=== PATIENT | female | born 1960 | race Caucasian/White ===

== ENCOUNTER 2017-09-16 08:46 | Emergency (ER) | payer OTHER ==
[2017-09-16 09:59] VITALS: BP 117/71; PULSE 74; TEMP 97.9; BMI 19.8
--- NOTE | 2017-09-16 10:11 | PDOC ---
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 Pt sent from employee health to ER for evaluation. Pt has no fever no body aches no abd pain no headche. non smoker no medical history. Past History - Past Medical History Allergies/Adverse Reactions: Allergies Allergy/AdvReac Type Severity Reaction Status Date / Time No Known Allergies Allergy Verified 09/16/17 09:54 Home Medications: Ambulatory Orders NK [No Known Home Medication] 06/10/17 Cardiac Disorders: Yes (MITRIAL VALVE) COPD: No Hypercholesterolemia: Yes - Immunization History Immunization Up to Date: Yes - Suicide/Smoking/Psychosocial Hx Smoking Status: No Smoking History: Never smoked Have you smoked in the past 12 months: No Number of Cigarettes Smoked Daily: 0 Cigars Per Day: 0 Information on smoking cessation initiated: No Hx Alcohol Use: No Drug/Substance Use Hx: No Substance Use Type: None *Physical Exam - Vital Signs Last Vital Signs Temp Pulse Resp BP Pulse Ox 97.9 F 74 14 117/71 100 09/16/17 09:54 09/16/17 09:54 09/16/17 09:54 09/16/17 09:54 09/16/17 09:54 - Physical Exam General Appearance: Yes: Nourished, Appropriately Dressed HEENT: positive: EOMI, JENNIFER, Normal ENT Inspection, TMs Normal, Pharynx Normal Neck: positive: Supple. negative: Lymphadenopathy (R), Lymphadenopathy (L) Respiratory/Chest: positive: Lungs Clear, Normal Breath Sounds. negative: Accessory Muscle Use, Crackles, Rales, Rhonchi, Stridor, Wheezing Cardiovascular: positive: Regular Rhythm, Regular Rate Gastrointestinal/Abdominal: positive: Normal Bowel Sounds, Soft Lymphatic: negative: Adenopathy Musculoskeletal: positive: Normal Inspection Extremity: positive: Normal Capillary Refill, Normal Inspection, Normal Range of Motion Integumentary: positive: Normal Color, Dry, Warm Neurologic: positive: Fully Oriented, Alert, Normal Mood/Affect, Normal Response , Motor Strength 5/5 Medical Decision Making - Medical Decision Making 09/16/17 10:09 cc: cough for 4 days no fever no chills no SOB taking OTC meds non smoker no SOB no fever, well appearing will dc home with follow up with PMD *DC/Admit/Observation/Transfer Diagnosis at time of Disposition: Viral upper respiratory tract infection with cough - Discharge Dispostion Disposition: HOME Condition at time of disposition: Good - Referrals Referrals: Alpesh Lui MD [Primary Care Provider] - - Patient Instructions Printed Discharge Instructions: DI for Viral Upper Respiratory Infection -- Adult Additional Instructions: drink pleanty of fluids increase vitamin C and zinc throat lozengers of your choice over the counter cough drops honey with tea and lemon follow with your doctor for any worsening symptoms - Post Discharge Activity Forms/Work/School Notes: Back to Work
== END 2017-09-16 10:15 | disposition home or self-care (01) ==
LOC: JER 08:46 → JERFT 08:46
DX: J06.9 Acute upper respiratory infection, unspecified (principal); E78.00 Pure hypercholesterolemia, unspecified
CPT/HCPCS: 99281-25

== ENCOUNTER → 2018-08-25 | Day surgery (SDC) | payer OTHER ==
--- NOTE | 2018-08-25 12:29 | OP ---
DATE OF OPERATION: 08/25/2018 PREOPERATIVE DIAGNOSIS: Abnormal right mammography. POSTOPERATIVE DIAGNOSIS: Abnormal right mammography. PROCEDURE: Right stereotactic needle biopsy with clips. SURGEON: Evy Carter MD ANESTHESIA: Local. COMPLICATIONS: None. This was a sterile procedure. INDICATIONS FOR PROCEDURE: Patient presented with a screening mammogram that showed increasing microcalcifications in the upper inner right breast. My recommendation was needle biopsy. The procedure discussed with all the questions answered. PROCEDURE IN DETAIL: Patient brought to [facility] in [place]. Laid prone on the Lor[place] table. Using the lateral approach the calcifications in the upper inner right breast were identified. A sterile prep obtained. A target was chosen. There was a positive stroke margin. Using Betadine and 1% lidocaine a 10-gauge Suros device was used to take several cores from this area. Cores showed calcifications within them. These were handled using the calcification protocol. A clip was deployed in the area. Hemostasis assured with direct pressure. The incision was closed with Steri-Strips. She tolerated the procedure well and [facility]. EVY CARTER M.D. [id number]
--- NOTE | 2018-08-26 16:36 | PATH ---
Surgical Pathology Report Patient Name: KITTY LOYD [facility]. Rec. #: [id number] /Age/Gender: 1960 (Age: 58) / F Account: [id number] Location: [facility] Taken: 08/25/2018 Received: 08/25/2018 Reported: 08/26/2018 Physicians: Evy Sin M.D. Specimen(s) Received A: RIGHT BREAST SPECIMEN - WITH CALCIFICATIONS B: RIGHT BREAST SPECIMEN - WITHOUT CALCIFICATIONS Clinical History Nonpalpable lesion Mammographic findings: Microcalcification, suspicious Final Diagnosis A. BREAST, RIGHT, WITH CALCIFICATIONS, STEREOTACTIC CORE BIOPSY: BENIGN BREAST TISSUE WITH SMALL INTRADUCTAL PAPILLOMA ASSOCIATED WITH PROLIFERATIVE FIBROCYSTIC CHANGES INCLUDING STROMAL FIBROSIS, MICROCYSTS, CYSTIC APOCRINE METAPLASIA, FLORID USUAL DUCTAL HYPERPLASIA, AND MICROCALCIFICATIONS. B. BREAST, RIGHT, WITHOUT CALCIFICATIONS, STEREOTACTIC CORE BIOPSY: BENIGN BREAST TISSUE WITH SMALL INTRADUCTAL PAPILLOMA ASSOCIATED WITH PROLIFERATIVE FIBROCYSTIC CHANGES INCLUDING STROMAL FIBROSIS, MICROCYSTS, CYSTIC APOCRINE METAPLASIA, FLORID USUAL DUCTAL HYPERPLASIA, AND MICROCALCIFICATIONS. Electronically Signed Tete Vásquez M.D. Gross Description A. Received in formalin labeled "right breast with calcifications," are 3 trevino-yellow, cylindrical portions of fibroadipose tissue ranging from 3.0-4.2 cm in length and averaging 0.3 cm in diameter. The specimens are submitted in toto in one cassette. B. Received in formalin labeled "right breast without calcifications," are 5 trevino-yellow, cylindrical portions of fibroadipose tissue ranging from 2.5-4.0 cm in length and averaging 0.3 cm in diameter. The specimens are submitted in toto in one cassette. Time to formalin fixation: 5 minutes Total formalin fixation time: Approximately 7 hours. /08/25/2018 saudi08/25/2018
== END | disposition home or self-care (01) ==
LOC: FMAMMOTONE 09:25
PROVIDERS: ATTEND Surgery
PROC: 0HBT3ZX Excision of Right Breast, Percutaneous Approach, Diagnostic (ICD-10-PCS; principal; 2018-08-25)
DX: D24.1 Benign neoplasm of right breast (principal); N60.31 Fibrosclerosis of right breast; N60.11 Diffuse cystic mastopathy of right breast; N60.81 Other benign mammary dysplasias of right breast; N64.89 Other specified disorders of breast; R92.8 Other abnormal and inconclusive findings on diagnostic imaging of breast
CPT/HCPCS: 19081; 87899; 88305-TC; A4648

== ENCOUNTER 2020-06-19 13:52 | Emergency (ER) | payer OTHER ==
[2020-06-19 14:05] VITALS: BP 104/70; PULSE 66; TEMP 97.6; BMI 22.0
[2020-06-19] MEDS ORDERED: BACITRACIN 15 GM TUBE TOPICAL OINTMENT ONE (14:19)
[2020-06-19] MEDS ORDERED: BACITRACIN 15 GM TUBE TOPICAL OINTMENT TP ONE (14:37)
== END 2020-06-19 14:40 | disposition home or self-care (01) ==
LOC: JERFT 13:52
DX: S60.811A Abrasion of right wrist, initial encounter (principal)
CPT/HCPCS: 99283-25

== ENCOUNTER 2020-07-19 14:20 | Emergency (ER) | payer OTHER ==
[2020-07-19 15:09] VITALS: BP 148/73; PULSE 91; TEMP 101.1; BMI 21.9
[2020-07-19] MEDS ORDERED: KETOROLAC TROMETHAMINE 30 MG/1 ML VIAL IM ONE (15:41)
[2020-07-19] MEDS ORDERED: KETOROLAC TROMETHAMINE 30 MG/1 ML VIAL ONE (15:44)
== END 2020-07-19 17:55 | disposition home or self-care (01) ==
LOC: JER 14:20
PROC: 3E0233Z Introduction of Anti-inflammatory into Muscle, Percutaneous Approach (ICD-10-PCS; principal; 2020-07-19)
DX: U07.1 COVID-19 (principal)
CPT/HCPCS: 71046-TC-FY; 99284-25; C9803; U0003

== ENCOUNTER 2020-08-17 22:19 | Observation (INO) | payer OTHER ==
[2020-08-17 22:22] VITALS: BMI 21.9
[2020-08-17 22:46] LABS: BASO % 0.6 % (0-2.0); EOS % 3.8 % (0-4.5); HEMATOCRIT 39.3 % (32.4-45.2); HEMOGLOBIN 13.2 GM/dL (10.7-15.3); LYMPH % 44.1 % (8-40); MCH 30.4 pg (25.7-33.7); MCHC 33.6 g/dl (32.0-36.0); MEAN CELL VOLUME 90.4 fl (80-96); MONO % 15.3 % (3.8-10.2); NEUT % 36.2 % (42.8-82.8); PLATELET COUNT 155 K/MM3 (134-434); RBC 4.35 M/mm3 (3.60-5.2); RDW 13.2 % (11.6-15.6); WHITE BLOOD COUNT 3.9 K/mm3 (4.0-10.0)
[2020-08-17 23:07] LABS: CHLORIDE 107 mmol/L (98-107); POTASSIUM 3.5 mmol/L (3.5-5.1); SODIUM 142 mmol/L (136-145)
[2020-08-17 23:09] LABS: ALBUMIN 3.9 g/dl (3.4-5.0); ANION GAP 7 MMOL/L (8-16); BLOOD UREA NITROGEN 24.6 mg/dL (7-18); CALCIUM 8.7 mg/dL (8.5-10.1); CO2 27 mmol/L (21-32); GLUCOSE,RANDOM 116 mg/dL (74-106)
[2020-08-17 23:11] LABS: SGOT/AST 18 U/L (15-37); SGPT/ALT 25 U/L (13-61)
[2020-08-17 23:12] LABS: CREATININE 0.9 mg/dL (0.55-1.3)
[2020-08-17 23:13] LABS: BILIRUBIN,TOTAL 0.3 mg/dL (0.2-1); TOT PROT 6.8 g/dl (6.4-8.2)
[2020-08-17 23:14] LABS: ALK PHOS 81 U/L (45-117)
[2020-08-17 23:53] LABS: MAGNESIUM 1.7 mg/dL (1.8-2.4)
[2020-08-17] MEDS ORDERED: MAGNESIUM SULF 50% (8.12 MEQ/2 ML-1 GM VIAL) IVPB ONE ×2 (23:54→23:55)
[2020-08-17] MEDS ORDERED: MAGNESIUM SULFATE IN WATER 2 GM/50 ML IVPB IVPB ONE (23:56)
[2020-08-18 03:42] LABS: INR 0.93 (0.83-1.09); PROTHROMBIN TIME (PATIENT) 11.3 SEC (9.7-13.0)
[2020-08-18 03:44] LABS: ACTIVATED PTT 31.6 SECONDS (25.2-36.5)
[2020-08-18 03:53] LABS: CHOLESTEROL 161 mg/dL (50-200); TRIGLYCERIDES 65 mg/dL (0-150)
[2020-08-18 03:54] LABS: LDL CHOLESTEROL (ONLY SJRH) 91 mg/dL (5-100)
[2020-08-18 03:55] LABS: HDL CHOLESTEROL 53 mg/dL (40-60)
[2020-08-18] MEDS ORDERED: ENOXAPARIN NA (PORCINE) 40 MG/0.4 ML DISP.SYRIN SQ ONE (08:49)
[2020-08-18] MEDS ORDERED: SODIUM CHLORIDE 1,000 ML IV SCH (09:30)
[2020-08-18] MEDS ORDERED: ENOXAPARIN NA (PORCINE) 40 MG/0.4 ML DISP.SYRIN SQ SCH (10:00)
[2020-08-18 11:24] LABS: EPI CELLS 7 /uL (0-25.1); HYALINE CASTS 0 /uL (0-3.1); URINE APPEARANCE CLEAR; URINE BACTERIA 45 /uL (0-1359); URINE BILIRUBIN NEGATIVE (NEGATIVE); URINE COLOR YELLOW; URINE GLUCOSE (UA) NEGATIVE (NEGATIVE); URINE KETONE NEGATIVE (NEGATIVE); URINE LEUK ESTERASE 2+ (NEGATIVE); URINE NITRITE NEGATIVE (NEGATIVE); URINE PROTEIN NEGATIVE (NEGATIVE); URINE RBC 18 /uL (0-23.9); URINE UROBILINOGEN 0.2 mg/dL (0.2-1.0); URINE WBC 22 /uL (0-25.8)
[2020-08-18 11:28] LABS: OPIATES, URI NEGATIVE ng/ml (CUTOFF=300); PHENCYCLIDINE,URINE NEGATIVE ng/ml (CUTOFF=25)
[2020-08-18 11:38] LABS: COCAINE, UR NEGATIVE ng/ml (CUTOFF=300); METHADONE, UR NEGATIVE ng/ml (CUTOFF=300); URINE AMPHETAMINES NEGATIVE ng/ml (CUTOFF=500); URINE BENZODIAZEPINES NEGATIVE ng/ml (CUTOFF=200)
[2020-08-18 11:49] LABS: URINE BARBITURATES POSITIVE ng/ml (CUTOFF=200)
[2020-08-18 14:37] VITALS: BP 116/79; PULSE 80; TEMP 98.5
[2020-08-19] MEDS ORDERED: ASPIRIN 81 MG CHEWABLE TABLETS PO SCH (10:00)
[2020-08-19] MEDS ORDERED: metoPROLOL SUCCINATE 25 MG TAB.SR.24H (FP) PO SCH (10:00)
[2020-08-19] MEDS ORDERED: ROSUVASTATIN CA 20 MG TABLET (FP) PO SCH (22:00)
== END 2020-08-18 16:46 | disposition left against medical advice (07) ==
LOC: JER 22:19 → JERBED 23:55 → INTOOBSV 23:55
PROVIDERS: ADMIT Internal Medicine; ATTEND Internal Medicine
DX: R00.2 Palpitations (principal); E83.42 Hypomagnesemia; R07.9 Chest pain, unspecified; R42 Dizziness and giddiness; I34.0 Nonrheumatic mitral (valve) insufficiency; I10 Essential (primary) hypertension; E78.5 Hyperlipidemia, unspecified; Z29.9 Encounter for prophylactic measures, unspecified; F41.9 Anxiety disorder, unspecified; R07.89 Other chest pain
CPT/HCPCS: 36415; 70450-TC; 71046-TC-FY; 80053; 80061; 80307; 81003; 82550; 83036; 83721; 83735; 84436; 84439; 84443; 84484; 85025; 85610; 85730; 93005; 93010; 93880-TC; 99285-25; C9803; G0378; U0003

== ENCOUNTER → 2021-05-28 | Day surgery (SDC) | payer OTHER | END | disposition home or self-care (01) | LOC: FRADUS-SUR 08:45 | PROVIDERS: ATTEND Surgery | PROC: 0HBT3ZX Excision of Right Breast, Percutaneous Approach, Diagnostic (ICD-10-PCS; principal; 2021-05-28) | DX: N60.81 Other benign mammary dysplasias of right breast (principal); N64.89 Other specified disorders of breast; N63.10 Unspecified lump in the right breast, unspecified quadrant | CPT/HCPCS: 19085; 77065-TC; 88305-TC; A4648; A9579; C1887 ==

== ENCOUNTER 2023-10-14 04:33 | Day surgery (SDC) | payer OTHER ==
[2023-10-12 14:42] VITALS: BMI 23.3
[2023-10-14 09:34] VITALS: TEMP 98
[2023-10-14 09:40] VITALS: RESP 18
[2023-10-14] MEDS ORDERED: POLYETHYLENE GLYCOL (HEALTHYLAX) 3350 17 GM PACKET PO SCH (10:00)
[2023-10-14 10:22] VITALS: BP 104/70; PULSE 57
== END 2023-10-14 10:23 | disposition home or self-care (01) ==
LOC: JASU-ENDO 04:33
PROVIDERS: ATTEND Internal Medicine Gastroenterology
PROC: 0DB98ZX Excision of Duodenum, Via Natural or Artificial Opening Endoscopic, Diagnostic (ICD-10-PCS; 2023-10-14)
PROC: 0DB78ZX Excision of Stomach, Pylorus, Via Natural or Artificial Opening Endoscopic, Diagnostic (ICD-10-PCS; 2023-10-14)
PROC: 0DBP8ZX Excision of Rectum, Via Natural or Artificial Opening Endoscopic, Diagnostic (ICD-10-PCS; principal; 2023-10-14 08:30)
DX: Z12.11 Encounter for screening for malignant neoplasm of colon (principal); D12.8 Benign neoplasm of rectum; K64.8 Other hemorrhoids; K57.30 Diverticulosis of large intestine without perforation or abscess without bleeding; K29.50 Unspecified chronic gastritis without bleeding
CPT/HCPCS: 88305-TC; 88342-TC